=== PATIENT | female | born 1970 | race Caucasian/White ===

== ENCOUNTER 2019-01-31 11:23 | Emergency (ER) | payer BC ==
[~2019-01-31] VITALS: Ht 152.4 cm; Wt 92.7 kg
[~2019-01-31 11:23] MED LIST: ATIVAN0.5 MG PO; BUPROBAN150 MG PO; CLARITIN 10 MG10 MG PO; CYCLOBENZAPRINE10 MG PO; CYMBALTA60 MG PO; IMITREX100 MG PO; OMEPRAZOLE40 MG PO; ZESTRIL20 MG
[2019-01-31 11:54] VITALS: Ht 152.4 cm; Wt 92.7 kg
[2019-01-31 12:24] LABS: APPEARANCE CLEAR (CLEAR); BILIRUBIN NEGATIVE (NEGATIVE); COLOR YELLOW (YELLOW); GLUCOSE NEGATIVE (NEGATIVE); KETONE SMALL mg/dL (NEGATIVE); NITRITE NEGATIVE (NEGATIVE); PROTEIN NEGATIVE (NEGATIVE); SPECIFIC GRAVITY 1.005 (1.005-1.020); UROBILINOGEN NORMAL (NORMAL)
[2019-01-31 12:34] LABS: BASOPHILS 0.1 % (0-2); EOSINOPHILS 0.2 % (0-7); HEMATOCRIT 41.5 % (36.0-48.0); HEMOGLOBIN 14.3 g/dL (12-16); IMMATURE GRANULOCYTES 0.2 % (0-5); LYMPHOCYTES 14.6 % (15-50); MCHC 34.5 g/dL (31.0-37.0); MCV 84.2 fL (80.0-100.0); MEAN PLATELET VOLUME 8.7 fL (7.4-10.4); MONOCYTES 8.2 % (2-11); NEUTROPHILS 76.7 % (40-80); PLATELET COUNT 319 10x3/uL (130-400); RBC 4.93 10x6/uL (4.00-5.40); RDW 13.2 % (11.5-14.5); WBC 12.2 10x3/uL (4.8-10.8)
[2019-01-31 12:52] LABS: ALBUMIN 3.8 g/dL (3.4-5.0); ALKALINE PHOSPHATASE 99 U/L (46-116); ALT (SGPT) 27 U/L (10-68); BILIRUBIN - TOTAL 1.17 mg/dL (0.2-1.3); CALC OSMOLALITY 276 mosm/kg (275-300); CALCIUM 9.2 mg/dL (8.5-10.1); CARBON DIOXIDE 27.3 mmol/L (21.0-32.0); CHLORIDE - SERUM 103 mmol/L (98-107); GLUCOSE 105 mg/dL (74-106); POTASSIUM - SERUM 3.9 mmol/L (3.5-5.1); SODIUM 139 mmol/L (136-145); UREA NITROGEN 11 mg/dL (7-18); eGFR NON AFRICAN AMERICAN 62 mL/min (90-120)
[2019-01-31 12:55] LABS: AMYLASE - SERUM 50 U/L (25-115); LIPASE 86 U/L (73-393); TROPONIN-I < 0.017 ng/mL (0.000-0.060)
[2019-01-31] MEDS ORDERED: FLAGYL500 MG PO (16:05)
[2019-01-31] MEDS ORDERED: CIPRO500 MG PO (16:05)
[2019-01-31] MEDS ORDERED: TORADOL10 MG PO (16:06)
[2019-01-31 16:43] VITALS: BP 127/81
== END 2019-01-31 16:30 | disposition home or self-care (01) ==
LOC: D.ER 11:23
PROVIDERS: Family Medicine
DX: K57.92 Diverticulitis of intestine, part unspecified, without perforation or abscess without bleeding (principal); R53.1 Weakness

== ENCOUNTER → 2019-03-29 13:15 | Outpatient (CLI) | payer BC ==
[2019-01-31 11:54] VITALS: BMI 39.9
[~2019-03-29 13:15] MED LIST changes: +CIPRO500 MG PO; +FLAGYL500 MG PO; +TORADOL10 MG PO; -ZESTRIL20 MG; +ZESTRIL20 MG PO
[2019-04-01 13:09] LABS: CORTISOL FREE - 24HR 32 ug/24 hr (6-42); CORTISOL FREE - UR 17 ug/L (Undefined)
[2019-04-04 03:07] LABS: METAN - URINE 34 ug/L (Undefined); METAN - URINE 24HR 65 ug/24 hr (45-290)
[2019-04-04 07:14] LABS: VMA - URINE 2.2 mg/L (Undefined)
== END | disposition home or self-care (01) ==
LOC: D.LAB 03-06 12:17
PROVIDERS: ATTEND Surgery
DX: E27.9 Disorder of adrenal gland, unspecified (principal)

== ENCOUNTER 2019-03-30 07:30 | Day surgery (SDC) | payer BC ==
[~2019-03-30] VITALS: Ht 152.4 cm; Wt 90.9 kg
[2019-03-30 07:56] LABS: HEMATOCRIT 37.8 % (36.0-48.0); HEMOGLOBIN 12.9 g/dL (12-16); MCH 28.9 pg (26.0-34.0); MCHC 34.1 g/dL (31.0-37.0); MCV 84.6 fL (80.0-100.0); MEAN PLATELET VOLUME 8.3 fL (7.4-10.4); RBC 4.47 10x6/uL (4.00-5.40); RDW 12.9 % (11.5-14.5); WBC 5.8 10x3/uL (4.8-10.8)
[2019-03-30 08:30] VITALS: BP 134/79; Ht 152.4 cm; Wt 90.9 kg
--- NOTE | 2019-03-30 10:23 | NUR ---
[id number] PATIENT AWAKE, ESOPHAGEAL MANOMETRY TEST COMPLETE.
--- NOTE | 2019-03-30 11:07 | NUR ---
PATIENT AMBULATING AROUND ROOM WITHOUT UNSTEADINESS OR DIZZINESS. PIV DC'D WITH TIP INTACT. DRESSED IN PERSONAL CLOTHING. DISCHARGE INSTRUCTIONS REVIEWED WITH PATIENT AND SPOUSE. DISCHARGED HOME VIA WHEELCHAIR TO PRIVATE VEHICLE WITH SPOUSE
--- NOTE | 2019-04-04 10:07 | OP ---
PATIENT NAME: BABATUNDE PHAN MEDICAL RECORD: [id number] :68 LOCATION:D.OPS ADMISSION DATE: SURGEON: LOC LANDAVERDE MD DATE OF OPERATION: 03/30/2019 PREOPERATIVE DIAGNOSES: 1. Gastroesophageal reflux disease. 2. Hiatal hernia. 3. Hypertension. 4. Left adrenal mass. POSTOPERATIVE DIAGNOSES: 1. Gastroesophageal reflux disease. 2. Hiatal hernia. 3. Hypertension. 4. Left adrenal mass. PROCEDURE: 1. EGD with biopsy. 2. Manometry catheter placement. SURGEON: Loc Landaverde MD REPORT OF PROCEDURE: An Olympus endoscope was advanced through the mouth into the esophagus. We were easily able to pass through the GE junction where we entered the hiatal hernia. We were able to pass through the diaphragm into the body of the stomach. As we passed through the pylorus, we were able to enter the duodenum. No masses, lesions, or ulcerations were visualized. As we pulled the scope back, we took a biopsy of the pylorus. The antral tissue showed mild inflammation with no masses, scarring, or lesions. Retroflexed view showed the large hiatal hernia with a portion of the stomach projecting up into the thoracic cavity. There was no sign of any ulcerations present. The total length of the hiatal hernia was 4 cm. The GE junction rested at 31 cm from the teeth. As we pulled back into the distal esophagus, there were no signs of any ulcerations or reflux type changes. A biopsy was taken on the distal third of the esophagus and sent off for permanent. We then removed the scope, esophageal manometry catheter was inserted through the naris and down into the stomach. We passed the endoscope and was able to position the catheter appropriately in the stomach, past the hiatal hernia. At this point, the scope and insufflation were removed. COMPLICATIONS: None. CONDITION: Stable. ANESTHESIA: TIVA. BLOOD LOSS: Minimal. TRANSINT:[id number] Voice Confirmation ID: [id number] DOCUMENT ID: [id number] OPERATIVE REPORT [id number] BASIMBABATUNDE THOMPSON LOC LANDAVERDE MD at 1007 CC: RASHMI AYALA MD [id number] DICTATION DATE: 03/30/19 0941 DATA ENTRY MANAGER: 03/30/19 1112 [facility] 03/30/19 [facility] [address] [place] [address]
== END 2019-03-30 11:07 | disposition home or self-care (01) ==
LOC: D.OPS 07:30
PROVIDERS: Anesthesiology; ATTEND Surgery
DX: K21.9 Gastro-esophageal reflux disease without esophagitis (principal); K44.9 Diaphragmatic hernia without obstruction or gangrene; K29.50 Unspecified chronic gastritis without bleeding; I10 Essential (primary) hypertension; E27.9 Disorder of adrenal gland, unspecified; Z01.812 Encounter for preprocedural laboratory examination